=== PATIENT | female | born 1990 | race Caucasian/White ===

== ENCOUNTER → 2020-04-06 | Outpatient (CLI) | payer OTHER | END | disposition home or self-care (01) | LOC: NUCLEAR 08:30 | PROVIDERS: ATTEND Internal Medicine Cardiovascular Disease | DX: R00.1 Bradycardia, unspecified (principal); I73.9 Peripheral vascular disease, unspecified; R94.31 Abnormal electrocardiogram [ECG] [EKG] ==

== ENCOUNTER 2024-07-01 13:00 | Emergency (ER) | payer OTHER ==
[~2024-07-01] VITALS: Ht 160 cm; Wt 56.7 kg
[2024-07-01] MEDS ORDERED: METOCLOPRAMIDE HCL 5 MG/ML VIAL IM STA (14:20)
[2024-07-01] MEDS ORDERED: MECLIZINE HCL 25 MG TABLET PO STA (14:20)
== END 2024-07-01 14:40 | disposition home or self-care (01) ==
LOC: ER 13:02
DX: H81.10 Benign paroxysmal vertigo, unspecified ear (principal); Z91.013 Allergy to seafood